=== PATIENT | male | born 1970 | race Asian ===

== ENCOUNTER 2017-04-22 09:47 | Emergency (ER) | payer OTHER ==
[~2017-04-22] VITALS: Ht 193 cm; Wt 81.6 kg
[2017-04-22] MEDS ORDERED: Ketorolac 30mg Inj IM ONE (10:15)
[2017-04-22] MEDS ORDERED: ACETAMINOPHEN-1 EAC1 ORAL (11:09)
[2017-04-22] MEDS ORDERED: IBUPROFEN600 MG ORAL (11:09)
[2017-04-22 11:14] VITALS: BP 123/76
[2017-04-22 11:17] VITALS: BP 123/76
--- NOTE | 2017-04-22 11:21 | Diagnostic Imaging Report ---
Indication: Trauma. Comparison: None Findings: 4 views of the right chest wall was obtained for evaluation of the ribs. There is no acute fracture identified. The lung is clear. No pneumothorax contusion or pleural effusion is seen. Impression: Negative right rib series
--- NOTE | 2017-04-22 12:17 | Emergency Room Report ---
History of Present Illness General Chief Complaint: Pain Source: Patient Present Illness HPI 46-year-old male presents to ED complaining of right rib pain.Patient states last night he was elbow in the right ribs while playing basketball. Denies any other injuries. States the pain is 8/10, throbbing, nonradiating. Worse with deep breaths. Denies chest pain or shortness of breath. No other aggravating or relieving factors. Denies any other associated symptoms Allergies: Coded Allergies: No Known Allergies (Unverified , 04/22/17) Patient History Past Medical History: none Past Surgical History: none Pertinent Family History: none Social History: Denies: alcohol use, drug use, smoking Immunizations: UTD Reviewed Nursing Documentation: PMH: Agreed, PSxH: Agreed Nursing Documentation-PMH Past Medical History: No Stated History Review of Systems All Other Systems: negative except mentioned in HPI Physical Exam Vital Signs Date Time Temp Pulse Resp B/P Pulse Ox O2 Delivery O2 Flow Rate FiO2 04/22/17 09:59 97.9 76 18 123/76 98 Room Air Sp02 EP Interpretation: reviewed, normal General Appearance: no apparent distress, alert, GCS 15, non-toxic Head: normocephalic Eyes: bilateral eye PERRL, bilateral eye normal inspection ENT: normal ENT inspection Neck: normal inspection Respiratory: other - reproducible R sided rib pain Cardiovascular #1: regular rate, rhythm, no edema Gastrointestinal: normal inspection Rectal: deferred Genitourinary: no CVA tenderness Musculoskeletal: normal inspection Neurologic: alert, oriented x3, responsive, motor strength/tone normal, sensory intact, speech normal Psychiatric: normal inspection Skin: normal inspection Lymphatic: normal inspection Medical Decision Making Diagnostic Impression: Primary Impression: Contusion of rib on right side Qualified Codes: S20.211A - Contusion of right front wall of thorax, initial encounter ER Course Hospital Course 46-year-old M presents to ED complaining of R rib pain s/p injury in basketball game Differential diagnoses include: Fracture, dislocation, sprain, contusion Clinical course Patient placed on stretcher. After initial history and physical, I ordered pain medications and Xrays of R rib series Xrays read shows no acute fracture/dislocation. On reassessment pain is improved Diagnosis - contusion of rib on the right side Stable and discharged to home with prescription for Motrin, tylenol #3. apply ice, keep elevated. weight bear as tolerated. Followup with PMD. Return to ED if symptoms recur or worsen Other X-Ray Diagnostic Results Other X-Ray Diagnostic Results : X-Ray Ordered: R RIb series EP Interpretation: No Findings: no fractures, no dislocation, no soft tissue swelling Number of Views: 3 Last Vital Signs Date Time Temp Pulse Resp B/P Pulse Ox O2 Delivery O2 Flow Rate FiO2 04/22/17 11:17 97.9 76 18 123/76 98 Room Air Status: improved Disposition: HOME, SELF-CARE Condition: Stable Scripts Acetaminophen With Codeine (T#3) (TYLENOL #3 TAB*) Y Tab 1 TAB ORAL Q8H Y for For Pain, #20 TAB Prov: ИРИНА ROLON M.D. 04/22/17 Ibuprofen* (MOTRIN*) 600 Mg Tablet 600 MG ORAL Q8H Y for For Pain, #30 TAB 0 Refills Prov: ИРИНА ROLON M.D. 04/22/17 Patient Instructions: Rib Contusion ИРИНА ROLON M.D. Apr 22, 2017 12:17
== END 2017-04-22 11:18 | disposition home or self-care (01) ==
LOC: EMR 10:56
DX: S20.211A Contusion of right front wall of thorax, initial encounter (principal); W50.0XXA Accidental hit or strike by another person, initial encounter; Y93.67 Activity, basketball; Y92.9 Unspecified place or not applicable
CPT/HCPCS: 71100; 96372; 99284; J1885